=== PATIENT | female | born 1985 | race Caucasian/White ===

== ENCOUNTER 2018-07-13 07:35 | Day surgery (SDC) | payer OTHER ==
[2018-07-13] MEDS ORDERED: Sodium Chloride 0.9% 20 ML ONE (08:14)
[2018-07-13] MEDS ORDERED: Cosyntropin 250 MCG VIAL SLOW IVP SCH (08:30)
[2018-07-13 11:41] VITALS: BP 136/81; TEMP 98.3
== END 2018-07-13 11:43 | disposition home or self-care (01) ==
LOC: ONC/OP 07:35
PROVIDERS: ATTEND Internal Medicine Rheumatology
DX: E27.49 Other adrenocortical insufficiency (principal); Z91.013 Allergy to seafood; Z91.018 Allergy to other foods; Z88.0 Allergy status to penicillin; Z88.8 Allergy status to other drugs, medicaments and biological substances; Z91.041 Radiographic dye allergy status; Z91.048 Other nonmedicinal substance allergy status
CPT/HCPCS: 36415; 80400; 82024; 96374; J0834

== ENCOUNTER 2019-03-23 09:20 | Outpatient (CLI) | payer OTHER ==
--- NOTE | 2019-03-23 12:17 | MRI ---
BRAIN MRI WITH AND WITHOUT CONTRAST: Date: 03/23/19 INDICATION: Migraine headache. No prior comparison imaging. FINDINGS: There is normal size of ventricular system. Septum pellucidum and third ventricle are midline. There is no acute territorial infarction or mass effect. No pathologic intra-axial enhancement is present. IMPRESSION: No acute intracranial abnormalities. POS: [facility]
[2019-03-23] MEDS ORDERED: Gadobenate Dimeglumine 529 MG/1 ML (20ML VIAL) ONE (15:27)
== END 2019-03-23 09:21 | disposition home or self-care (01) ==
LOC: TBSIIMAG 09:20
PROVIDERS: ATTEND Psychiatry & Neurology Neurology
DX: G43.019 Migraine without aura, intractable, without status migrainosus (principal)
CPT/HCPCS: 70553; A9577

== ENCOUNTER 2019-04-26 15:31 | Outpatient (CLI) | payer OTHER ==
--- NOTE | 2019-04-26 16:46 | MRI ---
MRI OF THE LEFT FINGERS WITHOUT CONTRAST: 04/26/19 HISTORY: Evaluate cysts of fingers. COMPARISON: Finger radiographs 04/07/16. FINDINGS: There is abnormal volar subluxation of the proximal interphalangeal joint of the small finger. Near t he region of interest marker appears to be retracted flexor tendons which appear to be scarred. No no rmal flexor tendons are seen passed the proximal phalanx head. There may be a few wisps of flexor dig itorum superficialis inserting upon the middle phalanx base although there are no flexor digitorum pr ofundus tendon appreciated. In the wrist, the flexor tendons are intact. Remainder of the tendons of the hand are intact. No abnormal mass. No cyst is appreciated. Musculature appears to be normal. IMPRESSION: At the area of interest marker appears to be retracted flexor digitorum profundus tendon. A few wisps of fibers of the flexor digitorum superficialis which be attached to the right middle phalanx base. Abnormal palmar subluxation of the middle phalanx at the proximal interphalangeal joint. This corresp onds to the radiographic findings from 2016. POS: [facility]
== END 2019-04-26 15:32 | disposition home or self-care (01) ==
LOC: SCSMRI 15:31
DX: R22.32 Localized swelling, mass and lump, left upper limb (principal)

== ENCOUNTER 2021-04-25 15:41 | Outpatient (CLI) | payer BC ==
[~2021-04-25 15:41] MED LIST: Magnevist 469MG/ML 20 ML VIAL ONE
== END 2021-04-25 15:42 | disposition home or self-care (01) ==
LOC: BICMRI 15:41
PROVIDERS: ATTEND Nurse Practitioner Acute Care
DX: G43.019 Migraine without aura, intractable, without status migrainosus (principal)
CPT/HCPCS: 70553; A9579